=== PATIENT | female | born 1995 | race Two or more races ===

== ENCOUNTER 2023-11-28 12:17 | Emergency (ER) | payer MEDICAID ==
[~2023-11-28] VITALS: Ht 180.3 cm; Wt 59.0 kg
[2023-11-28] MEDS ORDERED: Macrobid 100 M100 MG PO (12:38)
[2023-11-28] MEDS ORDERED: Pyridium200 MG PO (12:38)
[2023-11-28 12:52] LABS: Source, Urine Clean Catch
[2023-11-28 13:02] LABS: Appearance, Urine Hazy (Clear); Bilirubin, Urine Neg (Neg); Blood, Urine 2+ (Neg); Color, Urine Yellow (P-Yellow); Glucose Qualitative, Urine Neg (Neg); Ketones, Urine Neg (Neg); Leukocyte Esterase, Urine 3+ (Neg); Nitrite, Urine Pos (Neg); Protein, Urine 2+ (Neg); Specific Gravity, Urine 1.015 (1.003-1.022); Urobilinogen, Urine NORM (Normal)
[2023-11-28 13:10] LABS: Amorphous Light (0-Heavy); Bacteria Many /hpf; Squamous Epithelial Cells Few /hpf (Few); White Blood Cells, Urine 25-50 /hpf (0-5)
== END 2023-11-28 13:50 | disposition home or self-care (01) ==
LOC: ER 12:17
PROVIDERS: Physician Assistant
DX: N39.0 Urinary tract infection, site not specified (principal); F17.200 Nicotine dependence, unspecified, uncomplicated; Z79.899 Other long term (current) drug therapy
CPT/HCPCS: 81001; 81025; 87077; 87086; 87186; 99283